=== PATIENT | male | born 1960 | race Caucasian/White ===

== ENCOUNTER 2016-08-20 08:30 | Inpatient (IN) | payer OTHER ==
[~2016-08-20] VITALS: Ht 175 cm; Wt 74.0 kg
[2016-09-04 06:00] LABS: HCT 38.1 % (42.0-52.0); MCH 31.7 pg (25.0-31.0); MCHC 34.1 g/dL (32.0-36.0); MCV 92.9 fL (78.0-100.0); MPV 9.5 fL (6.0-9.5); RBC 4.1 M/uL (4.70-6.00); RDW 12.7 % (11.5-14.0); WBC 11.3 K/uL (4.0-10.5)
[2016-09-04 06:20] LABS: CREATININE 0.9 mg/dL (0.7-1.2); POTASSIUM 4.4 mmol/L (3.5-5.1)
--- NOTE | 2016-09-04 15:42 | NUR ---
NOTIFIED AT 1445 BY MENTAL HEALTH AIDES TEACHER THAT PATIENT'S BP WAS 87/54 AND O2 SATS ON ROOM AIR ARE 81%. PATIENT PLACED ON O2@2L/NC AND SATS CAME UP TO 97%. INSTRUCTED MENTAL HEALTH AIDES TEACHER TO RECHECK BP IN ONE HOUR. AT RECHECK, PATIENT'S BP WAS 98/67. SPOKE TO MD AND INFORMED OF VITAL SIGNS
[2016-09-05 05:13] LABS: HCT 37.6 % (42.0-52.0); HGB 12.6 g/dl (13.2-18.0); MCH 31.6 pg (25.0-31.0); MCHC 33.5 g/dL (32.0-36.0); MCV 94.2 fL (78.0-100.0); MPV 9.5 fL (6.0-9.5); RBC 3.99 M/uL (4.70-6.00); RDW 12.9 % (11.5-14.0); WBC 11.1 K/uL (4.0-10.5)
[2016-09-05 05:40] LABS: POTASSIUM 4.3 mmol/L (3.5-5.1)
[2016-09-06 05:21] LABS: HGB 12.4 g/dl (13.2-18.0); MCH 31.7 pg (25.0-31.0); MCHC 33.5 g/dL (32.0-36.0); MCV 94.6 fL (78.0-100.0); MPV 9.9 fL (6.0-9.5); RBC 3.91 M/uL (4.70-6.00); RDW 12.9 % (11.5-14.0); WBC 9.4 K/uL (4.0-10.5)
[2016-09-06 05:36] LABS: CREATININE 0.9 mg/dL (0.7-1.2); POTASSIUM 3.9 mmol/L (3.5-5.1)
[2016-09-07 05:35] LABS: HCT 37.2 % (42.0-52.0); HGB 12.5 g/dl (13.2-18.0); MCH 31.5 pg (25.0-31.0); MCHC 33.6 g/dL (32.0-36.0); MCV 93.7 fL (78.0-100.0); MPV 9.4 fL (6.0-9.5); RBC 3.97 M/uL (4.70-6.00); RDW 12.8 % (11.5-14.0); WBC 8.8 K/uL (4.0-10.5)
[2016-09-07 06:03] LABS: POTASSIUM 4.2 mmol/L (3.5-5.1)
== END 2016-09-07 15:50 | DRG 468 ==
LOC: FMS 09-03 08:30
PROVIDERS: Internal Medicine Nephrology; ADMIT Orthopaedic Surgery
PROC: 0SPD09Z Removal of Liner from Left Knee Joint, Open Approach (ICD-10-PCS; 2016-09-03)
PROC: 0SPD0JZ Removal of Synthetic Substitute from Left Knee Joint, Open Approach (ICD-10-PCS; 2016-09-03)
PROC: 0SUD09Z Supplement Left Knee Joint with Liner, Open Approach (ICD-10-PCS; 2016-09-03)
PROC: 0SRD0J9 Replacement of Left Knee Joint with Synthetic Substitute, Cemented, Open Approach (ICD-10-PCS; principal; 2016-09-03 11:00)
DX: T84.023A Instability of internal left knee prosthesis, initial encounter (principal); F95.2 Tourette's disorder; E78.5 Hyperlipidemia, unspecified; H91.90 Unspecified hearing loss, unspecified ear; M19.90 Unspecified osteoarthritis, unspecified site; M47.9 Spondylosis, unspecified; Z96.652 Presence of left artificial knee joint; Z91.040 Latex allergy status; R09.02 Hypoxemia; F11.21 Opioid dependence, in remission
CPT/HCPCS: 36415; 36600; 71020; 71275; 73560; 80048; 82803; 86850; 86900; 86901; 88305; 88311; 94010; 94760; 94762; 97110; 97116; 97162; 97166; 97530-GP; 97535; C1713; C1776; J0131; J0697; J1170; J1885; J2175; J2270; J2405; J2704; J2795; J3010

== ENCOUNTER 2016-09-07 16:14 | Inpatient (IN) | payer OTHER ==
[~2016-09-07] VITALS: Ht 175.3 cm; Wt 74.6 kg
--- NOTE | 2016-09-12 15:28 | NUR ---
MET WITH PT REGARDING D/C PAPERWORK. PT. REQUESTS [facility] FOR PT/OT AND NURSING ASSESSMENT. PT. HAS A ROLLING WALKER, 05/22 SHOWER SEAT. D/C NOTICE AND QUESTIONNAIRE GIVEN.
--- NOTE | 2016-09-13 11:53 | NUR ---
PT D/C HOME WITH SPOUSE THIS DATE. PT. HAS A ROLLING WALKER, 05/22 AND SHOWER SEAT. PT. REQUESTED [facility] FOR PT/OT AND NURSING ASSESSMENT. D/C NOTICE AND QUESTIONNAIRE GIVEN.
--- NOTE | 2016-09-13 17:27 | NUR ---
PT IN STABLE CONDITION. DISCUSSED DISCHARGE INSTRUCTIONS WITH PT. D/C HOME WITH FAMILY VIA W/C
== END 2016-09-13 17:28 | disposition home or self-care (01) | DRG 561 ==
LOC: FSNU 16:14
PROVIDERS: ADMIT Orthopaedic Surgery
DX: T84.023A Instability of internal left knee prosthesis, initial encounter (principal); F95.2 Tourette's disorder; Z47.1 Aftercare following joint replacement surgery; Z96.652 Presence of left artificial knee joint; E78.5 Hyperlipidemia, unspecified; H91.90 Unspecified hearing loss, unspecified ear; M19.90 Unspecified osteoarthritis, unspecified site; M47.9 Spondylosis, unspecified; Z91.040 Latex allergy status; R09.02 Hypoxemia; F11.21 Opioid dependence, in remission
CPT/HCPCS: 97110; 97116; 97161; 97167; 97530; 97530-GP; 97535; Q9967